=== PATIENT | male | born 1980 | race Caucasian/White ===

== ENCOUNTER → 2020-02-07 | Outpatient (CLI) | payer BC ==
--- NOTE | 2020-02-07 22:36 | CONS ---
CONSULTATION DATE OF SERVICE: 02/07/2020 This patient is a 39-year-old gentleman who has been evaluated in the sleep center for possible obstructive sleep apnea-hypopnea syndrome. HISTORY OF PRESENT ILLNESS/SLEEP-WAKE EVALUATION: Patient's usual sleep schedule on working days is from 10 p.m. to 7 a.m. and on weekends from 10 or 11 p.m. until 7 a.m. No problems with falling asleep. No TV in bedroom. He sleeps in different positions, including back, side and stomach. He snores loudly and he has had witnessed episodes of stopped breathing during sleep. He also has symptoms of restless legs and episodes of kicking at night. He wakes up from sleep multiple times with one episode of nocturia. In the morning, the patient wakes up tired, has difficulties paying attention, falling asleep during the day. [place] Sleepiness Scale is increased at 10. PAST MEDICAL HISTORY: Positive for history of asthma in childhood. SOCIAL HISTORY: Alcohol consumption: Up to 8 drinks twice a week. No history of using any illegal drugs. FAMILY HISTORY: Hypertension, heart problems, stroke, sleep apnea, cancer, diabetes, restless legs. REVIEW OF SYSTEMS: Multiple awakenings from sleep, sleepiness during the day. No history of hypnagogic hallucinations, sleep paralysis or cataplexy. PHYSICAL EXAMINATION: GENERAL: A pleasant gentleman without distress. VITAL SIGNS: BP 135/88, HR around 100, RR 15, height 5 feet 11 inches, weight 356.0 pounds, body mass index 49.6. HEENT: PERRLA, EOMI. Evaluation of oropharynx showed tongue protrudes midline. Extremely low position of soft palate. Mallampati IV. NECK: Supple. No JVD. Thyroid is not palpable. Wide neck, measuring 20 inches in circumference. LUNGS: Clear to percussion and to auscultation. Good air exchange. No wheezing or rhonchi. HEART: S1, S2 regular. No murmurs, gallops or rubs. ABDOMEN: Obese. EXTREMITIES: No clubbing or cyanosis. [employer]: Awake, alert, and oriented X3. Cranial nerves 2 to 7 intact. There is no fasciculation or atrophy. noted. No focal deficits observed. IMPRESSION: 1. Snoring, witnessed episodes of stopped breathing during sleep, extremely low position of soft palate, wide neck, multiple awakenings from sleep, sleepiness; obstructive sleep apnea-hypopnea syndrome. 2. Obesity. BMI 49.6. 3. Movements of legs during the night. Possible periodic limb movements. 4. History of asthma in childhood. PLAN: 1. Home sleep apnea test as a first step for evaluation of patient's breathing during sleep. 2. CPAP/BiPAP titration if sleep study confirms obstructive sleep apnea-hypopnea syndrome. 3. Preferable position during sleep on the side. 4. No driving if patient feels any sleepiness. 5. I will see patient for follow-up visit to explain results of testing and following plan. Thank you very much for referring this patient for consultation. Sincerely, Johnathan Rivera MD, PhD, FAASM Diplomat of [place] [employer] [place] [employer] Risk Modeler of [facility] [place] [id number] / MATT: [id number] /
== END | disposition home or self-care (01) ==
LOC: SLEEP 15:14
PROVIDERS: ATTEND Internal Medicine
DX: G47.33 Obstructive sleep apnea (adult) (pediatric) (principal); E66.9 Obesity, unspecified; Z68.42 Body mass index [BMI] 45.0-49.9, adult; Z87.09 Personal history of other diseases of the respiratory system
CPT/HCPCS: 99211